=== PATIENT | female | born 1950 | race African-American/Black ===

== ENCOUNTER 2018-05-30 14:19 | Emergency (ER) | payer MEDICARE, OTHER ==
[~2018-05-30] VITALS: Ht 165.1 cm; Wt 125.0 kg
[2018-05-30 15:35] VITALS: BP 121/70
== END 2018-05-31 04:20 | disposition left against medical advice (07) ==
LOC: ER 14:19
DX: R06.02 Shortness of breath (principal); Z53.21 Procedure and treatment not carried out due to patient leaving prior to being seen by health care provider